=== PATIENT | female | born 1980 | race Caucasian/White ===

== ENCOUNTER 2017-08-08 09:19 | Emergency (ER) | payer OTHER ==
[2017-08-08 09:35] VITALS: BP 119/78
--- NOTE | 2017-08-08 10:19 | EDM.PDOC ---
ED HPI GENERAL MEDICAL PROBLEM - General Chief Complaint: Respiratory Problem Stated Complaint: POSS INFLUENZA/FEVER/CHILLS Time Seen by Provider: 08/08/17 09:51 Source of Information: Reports: Patient, RN Notes Reviewed - History of Present Illness INITIAL COMMENTS - FREE TEXT/NARRATIVE: 37-year-old female presented to the [place] clinic this morning with left earache, cough, congestion, fever chills during the night. Due to inability to do some of the testing they had in mind they have referred her here to the ED for further evaluation. Her cough is been nonproductive. She does deny sore throat. She states her temp was up to 101 during the night with frequent chills. Generalized body aches that continued this morning. She has been taking Tylenol and ibuprofen so actually afebrile on arrival to ED. No chest pain or shortness of breath. No history of pleuritic chest pain. Generalized Pain Score (Numeric/FACES): 4 - Related Data Allergies Allergy/AdvReac Type Severity Reaction Status Date / Time No Known Allergies Allergy Verified 04/27/14 00:32 Home Meds: Home Meds Cholecalciferol (Vitamin D3) [Vitamin D3] 1,000 units PO DAILY 08/08/17 [History ] Gabapentin [Neurontin] 400 mg PO TID 08/08/17 [History] Multivitamin [Daily Cecil] 1 tab PO DAILY 08/08/17 [History] Nefazodone [Serzone] 200 mg PO BID 08/08/17 [History] Ondansetron [Zofran ODT] 4 mg PO Q6H PRN 08/08/17 [History] Pantoprazole Sodium 40 mg PO DAILY 08/08/17 [History] valACYclovir HCl [Valacyclovir] 1,000 mg PO ASDIRECTED 08/08/17 [History] Social & Family History - Tobacco Use Smoking Status *Q: Never Smoker - Alcohol Use Days Per Week of Alcohol Use: 0 - Recreational Drug Use Recreational Drug Use: No ED ROS GENERAL - Review of Systems Review Of Systems: See Below Constitutional: Reports: Fever, Chills, Malaise, Fatigue HEENT: Reports: Ear Pain (Left ear), Sinus Problem (Chronic nasal and sinus congestion). Denies: Throat Pain Respiratory: Reports: Cough. Denies: Shortness of Breath, Wheezing, Pleuritic Chest Pain Cardiovascular: Denies: Chest Pain GI/Abdominal: Denies: Abdominal Pain, Nausea, Vomiting Musculoskeletal: Reports: Other Skin: Denies: Rash (Generalized myalgias) Neurological: Denies: Headache ED EXAM, GENERAL - Physical Exam Exam: See Below General Appearance: Alert, No Apparent Distress Eye Exam: Bilateral Eye: PERRL Ears: Other (There is some fluid behind both TMs, right greater than left, neither TM inflamed at this time) Nose: Other Throat/Mouth: Normal Inspection (She does have some nasal and sinus congestion, sinuses nontender), Normal Oropharynx Head: Atraumatic. No: Facial Swelling, Facial Tenderness Neck: Supple, Full Range of Motion. No: Lymphadenopathy (L), Lymphadenopathy (R ) Respiratory/Chest: No Respiratory Distress, Lungs Clear, Normal Breath Sounds Cardiovascular: Regular Rate, Rhythm Extremities: Normal Inspection, Normal Range of Motion Neurological: Alert, Oriented, No Motor/Sensory Deficits Skin Exam: Warm, Dry, Normal Color, No Rash Course - Vital Signs Last Recorded V/S: Last Vital Signs Temp 97.7 F 08/08/17 09:31 Pulse 99 08/08/17 09:31 Resp 16 08/08/17 09:31 BP 119/78 08/08/17 09:31 Pulse Ox 98 08/08/17 09:31 - Re-Assessments/Exams Free Text/Narrative Re-Assessment/Exam: 08/08/17 10:47 Patient is referred here from the [place] clinic as noted. Concerns at the [place] clinic of possible pneumonia or something more serious such as a PE. I do not hear any sign of pneumonia at this time, her symptoms are compatible with acute viral syndrome. Not clinic chest x-ray her at this time and patient is comfortable with that. She does not have that much of a cough and what cough she does have is not productive. She also does not have acute symptoms or findings suggestive for PE warranting d-dimer or CT pulmonary angiogram at this time. Have discussed this with patient and we will proceed with symptomatic treatment for viral upper respiratory infection at this time. Patient understands and is comfortable with that plan. Departure - Departure Time of Disposition: 10:44 Disposition: Home, Self-Care 01 Condition: Fair Clinical Impression: Viral upper respiratory infection - Discharge Information Referrals: Eli Waddell DO [Primary Care Provider] - Forms: ED Department Discharge Additional Instructions: Vaporizer or steam as needed, rest, drink plenty of water to maintain hydration , needs alternate Tylenol and ibuprofen as needed for discomfort or high fever, as discussed the more acute symptoms of fever and muscle aching should gradually go away after a day or 2, Follow up clinic if not much better within 2 -3 days as expected, return to ED as needed.
== END 2017-08-08 11:01 | disposition home or self-care (01) ==
LOC: JD.ED 09:19
DX: J06.9 Acute upper respiratory infection, unspecified (principal); Z79.899 Other long term (current) drug therapy
CPT/HCPCS: 87804; 99283

== ENCOUNTER 2018-06-26 20:31 | Emergency (ER) | payer BC, OTHER ==
[2018-06-26 20:57] VITALS: BP 154/88
[2018-06-26] MEDS ORDERED: Ondansetron 4 MG/2 ML SDV IVPUSH ONE (21:41)
[2018-06-26] MEDS ORDERED: Sodium Chloride 0.9% 10 ML Syringe FLUSH PRN (21:41)
[2018-06-26] MEDS ORDERED: Famotidine 20 MG/2 ML SDV IVPUSH ONE (21:41)
[2018-06-26] MEDS ORDERED: HYDROmorphone 1 MG/ML Syringe IVPUSH ONE ×2 (21:41→22:35)
[2018-06-26] MEDS ORDERED: Sodium Chloride 0.9% 1,000 ML IV SCH (21:45)
[2018-06-26] MEDS ORDERED: LORazepam 2 MG/ML SDV IVPUSH ONE (22:35)
[2018-06-26] MEDS ORDERED: Ketorolac 30 MG/ML SDV IVPUSH SCH (22:45)
[2018-06-27] MEDS ORDERED: Magnesium Hydroxide 400 MG/5 ML Susp 30 ML Cup PO ONE (00:12)
[2018-06-27] MEDS ORDERED: Dicyclomine 10 MG Cap PO ONE (00:12)
--- NOTE | 2018-06-27 00:22 | EDM.PDOC ---
ED HPI GENERAL MEDICAL PROBLEM - General Chief Complaint: Abdominal Pain Stated Complaint: ABDOMINAL & BACK PAIN Time Seen by Provider: 06/26/18 21:24 Source of Information: Reports: Patient, RN Notes Reviewed - History of Present Illness INITIAL COMMENTS - FREE TEXT/NARRATIVE: 38-year-old female comes in with quite severe abdominal pain. Are did yesterday and has been more severe, more bothersome today. She does have history of prior cholecystectomy. She also has had prior gastric bypass surgery about a year and a half ago. She did have a loose BMs earlier today. She is not having diarrhea. She's not been actively vomiting. When she does try eat the nausea, pain and cramping does get worse. No chest discomfort fever or chills. No difficulty breathing. Lower Abdomen Pain Score (Numeric/FACES): 8 - Related Data Allergies Allergy/AdvReac Type Severity Reaction Status Date / Time No Known Allergies Allergy Verified 06/26/18 20:50 Home Meds: Home Meds Calcium Carbonate/Vitamin D3 [Calcium 500 + Vit D 400] 1 each PO DAILY 06/26/18 [History] Gabapentin. 1 tab PO TID 06/26/18 [History] Lactobacillus Acidophilus [Probiotic] 1 each PO DAILY 06/26/18 [History] Multivitamin [Daily Multiple Vitamin] 1 each PO DAILY 06/26/18 [History] Nafazedone. 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 Denies: Diarrhea, Hematochezia, Melena, Vomiting : Reports: No Symptoms Musculoskeletal: Reports: Back Pain Skin: Reports: No Symptoms Neurological: Reports: No Symptoms ED EXAM, GI/ABD - Physical Exam Exam: See Below General Appearance: Alert, Moderate Distress Eyes: Bilateral: Normal Appearance Throat/Mouth: Normal Inspection, Normal Oropharynx Head: Atraumatic. No: Facial Swelling Neck: Supple, Full Range of Motion Respiratory/Chest: No Respiratory Distress, Lungs Clear, Normal Breath Sounds Cardiovascular: Regular Rate, Rhythm GI/Abdominal Exam: Tender (Mild to moderate diffuse tenderness upper abdomen, minimal tenderness bilateral lower abdomen, no guarding, no definite rebound) Back Exam: No: CVA Tenderness (L), CVA Tenderness (R) Extremities: Normal Inspection, Normal Range of Motion. No: Pedal Edema Neurological: Alert, Oriented, No Motor/Sensory Deficits Skin Exam: Warm, Dry, Normal Color Course - Vital Signs Last Recorded V/S: Last Vital Signs Temp 99.2 F 06/26/18 20:54 Pulse 75 06/26/18 20:54 Resp 16 06/26/18 20:54 BP 154/88 H 06/26/18 20:54 Pulse Ox 100 06/26/18 20:54 - Orders/Labs/Meds Orders: Active Orders 24 hr Category Date Time Status Peripheral IV Care [RC] . DIRECTED Care 06/26/18 21:43 Active Abdomen 2V AP Flat Upright [CR] Stat Exams 06/26/18 23:46 Taken Ketorolac [Toradol] Med 06/26/18 22:45 Active 30 mg IVPUSH ONETIME Sodium Chloride 0.9% [Normal Saline] 1,000 ml Med 06/26/18 21:45 Active IV ONETIME Sodium Chloride 0.9% [Saline Flush] Med 06/26/18 21:41 Active 10 ml FLUSH ASDIRECTED PRN Peripheral IV Insertion Adult [OM.PC] Stat Oth 06/26/18 21:41 Ordered Medication Orders Sodium Chloride (Normal Saline) 1,000 mls @ 999 mls/hr IV ONETIME MARYURI Last Admin: 06/26/18 21:56 Dose: 999 mls/hr Ketorolac Tromethamine (Toradol) 30 mg IVPUSH ONETIME MARYURI Last Admin: 06/26/18 22:46 Dose: 30 mg Sodium Chloride (Saline Flush) 10 ml FLUSH ASDIRECTED PRN PRN Reason: Keep Vein Open Last Admin: 06/26/18 21:56 Dose: 10 ml Labs: Laboratory Tests 06/26/18 06/26/18 06/26/18 Range/Units 22:00 22:00 22:00 WBC 5.75 (3.98-10.04) K/mm3 RBC 4.48 (3.98-5.22) M/mm3 Hgb 12.9 (11.2-15.7) gm/L Hct 38.7 (34.1-44.9) % MCV 86.4 (79.4-94.8) fl MCH 28.8 (25.6-32.2) pg MCHC 33.3 (32.2-35.5) g/dl RDW Std Deviation 39.8 (36.4-46.3) fL Plt Count 182 (182-369) K/mm3 MPV 9.9 (9.4-12.3) fl Neutrophils % (Manual) 48 (40-60) % Band Neutrophils % 1 (0-10) % Lymphocytes % (Manual) 44 H (20-40) % Atypical Lymphs % 0 % Monocytes % (Manual) 4 (2-10) % Eosinophils % (Manual) 2 (0.7-5.8) % Basophils % (Manual) 1 (0.1-1.2) Platelet Estimate Adequate Plt Morphology Comment Normal RBC Morph Comment Normal Sodium 145 (136-145) mEq/L Potassium 3.3 L (3.5-5.1) mEq/L Chloride 108 H (98-107) mEq/L Carbon Dioxide 29 (21-32) mEq/L Anion Gap 11.3 (5-15) BUN 12 (7-18) mg/dL Creatinine 0.6 (0.55-1.02) mg/dL Est Cr Clr Drug Dosing 117.84 mL/min Estimated GFR (MDRD) > 60 (>60) mL/min BUN/Creatinine Ratio 20.0 H (14-18) Glucose 80 (74-106) mg/dL Calcium 9.1 (8.5-10.1) mg/dL Total Bilirubin 0.3 (0.2-1.0) mg/dL GGT 2 L (5-55) U/L AST 13 L (15-37) U/L ALT 29 (14-59) U/L Alkaline Phosphatase 89 (46-116) U/L C-Reactive Protein < 0.2 (<1.0) mg/dL Total Protein 7.2 (6.4-8.2) g/dl Albumin 3.8 (3.4-5.0) g/dl Globulin 3.4 gm/dL Albumin/Globulin Ratio 1.1 (1-2) Lipase 58 L (73-393) U/L Meds: Medications Generic Name Dose Route Start Last Admin Trade Name Freq PRN Reason Stop Dose Admin Sodium Chloride 1,000 mls @ 999 mls/hr 06/26/18 21:45 06/26/18 21:56 Normal Saline IV 999 mls/hr ONETIME MARYURI Administration Ketorolac Tromethamine 30 mg 06/26/18 22:45 06/26/18 22:46 Toradol IVPUSH 30 mg ONETIME MARYURI Administration Sodium Chloride 10 ml 06/26/18 21:41 06/26/18 21:56 Saline Flush FLUSH 10 ml ASDIRECTED PRN Administration Keep Vein Open Discontinued Medications Generic Name Dose Route Start Last Admin Trade Name Freq PRN Reason Stop Dose Admin Dicyclomine HCl 10 mg 06/27/18 00:12 06/27/18 00:29 Bentyl PO 06/27/18 00:13 10 mg ONETIME ONE Administration Famotidine 20 mg 06/26/18 21:41 06/26/18 21:57 Pepcid IVPUSH 06/26/18 21:42 20 mg ONETIME ONE Administration Hydromorphone HCl 1 mg 06/26/18 21:41 06/26/18 21:58 Dilaudid IVPUSH 06/26/18 21:42 1 mg ONETIME ONE Administration Hydromorphone HCl 1 mg 06/26/18 22:35 Dilaudid IVPUSH 06/26/18 22:36 ONETIME ONE Lorazepam 1 mg 06/26/18 22:35 06/26/18 22:46 Ativan IVPUSH 06/26/18 22:36 1 mg ONETIME ONE Administration Magnesium Hydroxide 30 ml 06/27/18 00:12 06/27/18 00:29 Milk Of Magnesia PO 06/27/18 00:13 30 ml ONETIME ONE Administration Ondansetron HCl 4 mg 06/26/18 21:41 06/26/18 21:56 Zofran IVPUSH 06/26/18 21:42 4 mg ONETIME ONE Administration - Re-Assessments/Exams Free Text/Narrative Re-Assessment/Exam: 06/27/18 00:40 Patient did get some relief from the initial Dilaudid but still having quite severe pain and cramping at times, followed that up with Ativan 1 mg IV Toradol 30 mg IV and with that her pain did almost completely go away. And upright of the abdomen shows a lot of gas in the colon and small bowel, no air-fluid levels visible. Have also given Bentyl 10 mg by mouth and no command. Have advised that she stick with clear liquids until tomorrow evening, continue to take the Bentyl 10 mg 3 times a day, see if that will give her some decent relief. She does have a clinic appointment for 1-1/2 days from now. Start instructions as documented. Departure - Departure Time of Disposition: 00:30 Disposition: Home, Self-Care 01 Preliminary Cause of *Q: Sepsis & Multi System Organ Failure Clinical Impression: Abdominal pain Qualifiers: Abdominal location: generalized Qualified Code(s): R10.84 - Generalized abdominal pain - Discharge Information Prescriptions: Hydrocodone/Acetaminophen [[place] 5-325 Tablet] 1 each PO Q4HR PRN #14 tablet PRN Reason: Pain Dicyclomine [Bentyl] 10 mg PO TID #14 cap Referrals: Yue Orr MD [Primary Care Provider] - Forms: ED Department Discharge Additional Instructions: clear liquids until tomorrow evening, than very careful bland diet as tolerated. Continue probiotic twice daily, bentyl 10 mg 3 times daily for colon and intestinal spasms or cramping. Tylenol for mild to moderate pain or hydrocodone if needed for severe pain or cramping. Follow up clinic as planned. Return to ED as needed if symptoms worsening in any way. - My Orders Last 24 Hours: My Active Orders 06/26/18 21:41 Sodium Chloride 0.9% [Saline Flush] 10 ml FLUSH ASDIRECTED PRN Peripheral IV Insertion Adult [OM.PC] Stat 06/26/18 21:43 Peripheral IV Care [RC] . DIRECTED 06/26/18 21:45 Sodium Chloride 0.9% [Normal Saline] 1,000 ml IV ONETIME 06/26/18 22:45 Ketorolac [Toradol] 30 mg IVPUSH ONETIME 06/26/18 23:46 Abdomen 2V AP Flat Upright [CR] Stat - Assessment/Plan Last 24 Hours: My Active Orders 06/26/18 21:41 Sodium Chloride 0.9% [Saline Flush] 10 ml FLUSH ASDIRECTED PRN Peripheral IV Insertion Adult [OM.PC] Stat 06/26/18 21:43 Peripheral IV Care [RC] . DIRECTED 06/26/18 21:45 Sodium Chloride 0.9% [Normal Saline] 1,000 ml IV ONETIME 06/26/18 22:45 Ketorolac [Toradol] 30 mg IVPUSH ONETIME 06/26/18 23:46 Abdomen 2V AP Flat Upright [CR] Stat
--- NOTE | 2018-06-27 06:32 | CR ---
Abdomen: Supine and upright views of the abdomen were obtained. Increased gas is noted throughout the colon. Bowel gas pattern is otherwise unremarkable. Surgical clips are seen from prior cholecystectomy. Bony structures are unremarkable. Calcifications are seen within the pelvis compatible with phlebolith. Other surgical anastomotic sutures are seen in the area of the left abdomen and upper abdomen. Impression: 1. Previous abdominal surgery. 2. Slight increased gas within the colon which appears to be mild ileus. Diagnostic code #2
== END 2018-06-27 00:36 | disposition home or self-care (01) ==
LOC: JD.ED 20:31
DX: R10.84 Generalized abdominal pain (principal); Z79.899 Other long term (current) drug therapy
CPT/HCPCS: 36415; 74019; 80053; 82977; 83690; 85007; 85027; 86140; 96361; 96374; 96375; 99284; A9270; J1170; J1885; J2060; J2405; J3490; J7040

== ENCOUNTER 2019-08-07 06:57 | Day surgery (SDC) | payer BC, OTHER ==
[~2019-08-07 06:57] MED LIST: Lidocaine 1%/Sod Bicarbonate in NS 8.4% 1 ML Syringe IDERM PRN; Sodium Chloride 0.9% 10 ML Syringe FLUSH PRN
[2019-08-07] MEDS ORDERED: Propofol 200 MG/20 ML SDV ONE (07:14)
[2019-08-07] MEDS ORDERED: fentaNYL 250 MCG/5 ML SDV ONE (07:15)
[2019-08-07] MEDS ORDERED: Midazolam 1 MG/ML 2 ML SDV ONE ×2 (07:15→07:45)
[2019-08-07] MEDS ORDERED: Lidocaine 1% 4 ML ONE (07:16)
[2019-08-07] MEDS: Lactated Ringers 1,000 ML IV SCH ×2 (07:25→11:14)
--- NOTE | 2019-08-07 08:10 | PCM.PREANE ---
Preanesthetic Assessment - Anesthesia/Transfusion/Family Hx Anesthesia History: Prior Anesthesia Without Reaction - Review of Systems General: No Symptoms Pulmonary: No Symptoms Cardiovascular: No Symptoms Gastrointestinal: No Symptoms Neurological: No Symptoms Other: Reports: None - Physical Assessment NPO Status Date: 08/06/19 NPO Status Time: 22:00 Vital Signs: Last Vital Signs Temp 98.0 F 08/07/19 07:05 Pulse 61 08/07/19 07:05 Resp 14 08/07/19 07:05 BP 112/74 08/07/19 07:05 Pulse Ox 97 08/07/19 07:05 Height: 1.7 m Weight: 63.049 kg ASA Class: 1 Mental Status: Alert & Oriented x3 Airway Class: Mallampati = 1 Dentition: Reports: Normal Dentition Thyro-Mental Finger Breadths: 3 Mouth Opening Finger Breadths: 3 ROM/Head Extension: Full Lungs: Clear to Auscultation, Normal Respiratory Effort Cardiovascular: Regular Rate, Regular Rhythm - Allergies Allergies/Adverse Reactions: Allergies Allergy/AdvReac Type Severity Reaction Status Date / Time lactose Allergy Nausea and Verified 08/06/19 12:57 Vomiting hayfever Allergy Sneezing Uncoded 08/06/19 12:57 - Acknowledgements Anesthesia Type Planned: General Anesthesia Pt an Appropriate Candidate for the Planned Anesthesia: Yes Alternatives and Risks of Anesthesia Discussed w Pt/Guardian: Yes Pt/Guardian Understands and Agrees with Anesthesia Plan: Yes PreAnesthesia Questionnaire HEENT History: Reports: Impaired Vision, Other (See Below) Other HEENT History: optic neuritis, wears glasses Cardiovascular History: Reports: High Cholesterol Respiratory History: Reports: None Gastrointestinal History: Reports: GERD Genitourinary History: Reports: Renal Calculus [employer]ER History: Reports: Musculoskeletal History: Reports: Back Pain, Chronic, Other (See Below) Other Musculoskeletal History: joint pain, plantar fasciitis Neurological History: Reports: None Psychiatric History: Reports: Anxiety, Depression Endocrine/Metabolic History: Reports: None Hematologic History: Reports: None Immunologic History: Reports: None Oncologic (Cancer) History: Reports: None Dermatologic History: Reports: None - Past Surgical History Head Surgeries/Procedures: Reports: None HEENT Surgical History: Reports: Oral Surgery Cardiovascular Surgical History: Reports: None Respiratory Surgical History: Reports: None GI Surgical History: Reports: Bariatric Procedure, Cholecystectomy, Colonoscopy , EGD Female Surgical History: Reports: D&C Male Surgical History: Reports: None Endocrine Surgical History: Reports: None Neurological Surgical History: Reports: None Musculoskeletal Surgical History: Reports: None Oncologic Surgical History: Reports: None Dermatological Surgical History: Reports: None - SUBSTANCE USE Smoking Status *Q: Former Smoker Recreational Drug Use History: No - HOME MEDS Home Medications: Home Meds Calcium Carbonate [Calcium] 500 mg PO DAILY 08/06/19 [History] Docusate Sodium [Colace] 100 mg PO BID 08/06/19 [History] Esomeprazole Magnesium [Nexium] 40 mg PO DAILY 08/06/19 [History] Gabapentin [Neurontin] 600 mg PO TID 08/06/19 [History] Lactobacillus Combination No.4 [Probiotic] 1 cap PO DAILY 08/06/19 [History] Melatonin 10 mg PO BEDTIME PRN 08/06/19 [History] Multivitamin 1 tab PO DAILY 08/06/19 [History] Nefazodone [Serzone] 300 mg PO BID 08/06/19 [History] Ondansetron HCl [Zofran] 4 mg PO Q6H PRN 08/06/19 [History] Temazepam 30 mg PO BEDTIME PRN 08/06/19 [History] traMADol [Ultram] 50 mg PO DAILY PRN 08/06/19 [History] traZODone 75 mg PO BEDTIME PRN 08/06/19 [History] valACYclovir HCl [valACYclovir] 2,000 mg PO BID PRN 08/06/19 [History] - CURRENT (IN HOUSE) MEDS Current Meds: Current Medications Lactated Ringer's (Ringers, Lactated) 1,000 mls @ 125 mls/hr IV ASDIRECTED MARYURI Stop: 08/07/19 23:00 Last Admin: 08/07/19 07:25 Dose: 125 mls/hr Lidocaine/Sodium Bicarbonate (Buffered Lidocaine 1% In Ns 8.4%) 0.25 ml IDERM ONETIME PRN PRN Reason: Prior to IV Start Stop: 08/07/19 18:00 Last Admin: 08/07/19 07:24 Dose: 0.25 ml Sodium Chloride (Saline Flush) 10 ml FLUSH ASDIRECTED PRN PRN Reason: Keep Vein Open Stop: 08/07/19 18:00 Discontinued Medications Bupivacaine HCl/Epinephrine Bitart (Marcaine 0.5%/Epinephrine 1:200,000) Confirm Administered Dose 50 ml .ROUTE .STK-MED ONE Stop: 08/07/19 07:14 Fentanyl (Sublimaze) Confirm Administered Dose 250 mcg .ROUTE .STK-MED ONE Stop: 08/07/19 07:16 Lidocaine HCl (Xylocaine-Mpf 1%) Confirm Administered Dose 4 mls @ as directed .ROUTE .STK-MED ONE Stop: 08/07/19 07:17 Lidocaine/Epinephrine (Xylocaine 1% With Epinephrine 1:100,000) Confirm Administered Dose 40 ml .ROUTE .STK-MED ONE Stop: 08/07/19 07:14 Midazolam HCl (Versed 1 Mg/Ml) Confirm Administered Dose 2 mg .ROUTE .STK-MED ONE Stop: 08/07/19 07:16 Midazolam HCl (Versed 1 Mg/Ml) Confirm Administered Dose 2 mg .ROUTE .STK-MED ONE Stop: 08/07/19 07:46 Propofol (Diprivan 20 Ml) Confirm Administered Dose 200 mg .ROUTE .STK-MED ONE Stop: 08/07/19 07:15 Vecuronium [place] (Vecuronium) Confirm Administered Dose 10 mg .ROUTE .STK-MED ONE Stop: 08/07/19 07:16
[2019-08-07] MEDS ORDERED: ceFAZolin 1 GM Vial ONE (08:36)
[2019-08-07] MEDS: Lidocaine 1% with EPINEPHrine 1:100,000 20 ML MDV ONE ×2 (08:40→09:03)
[2019-08-07] MEDS: Bupivacaine 0.5%/EPINEPHrine 1:200,000 50 ML MDV ONE ×2 (08:40→09:03)
[2019-08-07] MEDS ORDERED: Morphine 10 MG/ML SDV ONE (08:42)
[2019-08-07] MEDS ORDERED: Lactated Ringers 1,000 ML ONE (08:53)
[2019-08-07] MEDS ORDERED: fentaNYL 100 MCG/2 ML SDV IVPUSH PRN (08:59)
[2019-08-07] MEDS ORDERED: Midazolam 1 MG/ML 2 ML SDV IVPUSH PRN (09:02)
[2019-08-07] MEDS ORDERED: Ondansetron 4 MG/2 ML SDV ONE (09:23)
[2019-08-07] MEDS ORDERED: Dexamethasone 4 MG/ML 5 ML MDV ONE (09:23)
[2019-08-07] MEDS ORDERED: Ketorolac 30 MG/ML SDV ONE (09:31)
--- NOTE | 2019-08-07 09:40 | PCM.PRNOTE ---
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 Normal Ray-en-Y anatomy with healthy appearing bowel. Detailed Report: After induction of general endotracheal anesthesia and standard prep and draping of the abdomen, the [place] technique was employed in order to secure a 12 mm laparoscopic port at the umbilicus. The abdomen was insufflated and contents inspected. Additional 5 mm ports were placed at the suprapubic region, left lower quadrant and right lateral mid abdomen. The small bowel was run in its entirety from the ileocecal junction to the jejunojejunostomy. The biliopancreatic limb was traced back to the ligament of Treitz, and the Ray limb traced superiorly to the gastric pouch in antecolic position. There was a wide mesenteric window between the Ray limb and the remnant stomach and transverse colon. A 2-0 barbed PDS suture was then used to close the window from the level of the transverse colon down to the crotch or base of the Ray limb mesentery. Next, the jejunojejunostomy was carefully inspected. The mesentery of the biliopancreatic limb appeared fused with the mesentery of the rest of the bowel at the anastomosis, with no identifiable window to close. This concluded my involvement in the operation. Maurizio Porter MD
--- NOTE | 2019-08-07 09:51 | PCM.OPNOTE ---
- General Post-Op/Procedure Note Date of Surgery/Procedure: 08/07/19 Operative Procedure(s): 1. Diagnostic laparoscopy. 2. Repair of internal hernia Findings: Internal hernia at the antecolic border of the fernando limb mesentery and transverse colon Pre Op Diagnosis: abdominal pain, possible internal hernia Post-Op Diagnosis: internal hernia Anesthesia Technique: General ET Tube, Local Primary Surgeon: Micaela Meade Ortho Nurse: Maurizio Porter Reason Ortho Nurse Was Necessary: surgical skilled assist was needed for post-surgical anatomy Pathology: none Fluid Replacement, Intraop: 1,500 Output, Urine Amount: 0 EBL in mLs: 5 Complications: none apparent Condition: Good
--- NOTE | 2019-08-07 09:54 | PCM.PRNOTE ---
- Free Text/Narrative Note: Operative Report Date of surgery: August 07, 2019 Preoperative diagnosis: Abdominal pain, possible internal hernia Postoperative diagnosis: Internal hernia Procedure: 1. Diagnostic laparoscopy 2. Repair of internal hernia Surgeon: Dr. Micaela Meade Rocket Test Fire Worker: Dr. Maurizio Porter Rocket Test Fire Worker justification: surgical skilled assist was needed for specialized post -surgical anatomy Anesthesia: General ET, local Client Leader: Salvador Garcia CRNA Estimated blood loss: 5 mL IV fluids: 1500 mL Urine output: 0 mL Drains and lines: none Findings: Internal hernia at the antecolic border of the fernando limb mesentery and transverse colon Pathology: none Indication for the procedure: The patient is a 39 y/o female with a long history of intermittent abdominal pain with obstructive symptoms. She has undergone workup with EGD and colonoscopy. She recently had a CT scan of the abdomen and pelvis which indicated findings of an internal hernia. She was consented for a diagnostic laparoscopy with possible lysis of adhesions, and possible repair of internal hernia. Discussed risks of infection, bleeding, possible bowel injury, and possible creation of additional adhesions. Her written consent was obtained. Description of the procedure: The patient presented to the outpatient holding area on the day of her procedure. Her history and physical verified. Her consent was present and on the chart. She was taken back to the operating room and placed in supine position on the operating table. She had administration of 2 g Ancef per SCIP guidelines. She had successful induction of general anesthesia and was intubated without difficulty. She was then prepped and draped in standard surgical fashion. A surgical timeout was performed. We began by making an infraumbilical incision and this was deepened down to level the fascia which was grasped and incised sharply. We then placed a stay suture of 0 Vicryl in a pursestring fashion at the fascial opening. A 12 mm on cannula was then placed into the abdomen. The abdomen was insufflated to 15 mmHg without incident. We then surveyed the abdomen. A TAP block was performed using 40 mL of mixed one-to-one 1% lidocaine with epinephrine and 0.5 % bupivacaine with epinephrine. Two 5 mm ports were then placed in the suprapubic midline and left lower quadrant under direct visualization. The was then positioned in Trendelenburg with the right side elevated to facilitate exposure of the cecum and ileum. There was a small amount adhesion between the cecum and the abdominal wall. This was bluntly removed. The terminal ileum was then grasped and the ileum retraced superiorly towards the patient's head. During the running of the bowel, we identified a loop of bowel that was herniated up into the left upper quadrant. We were able to trace the bowel to the level of the jejunojejunal anastomosis. The stenosis was intact and the mucosa appeared healthy. We were then able to trace the Fernando limb to the where it was overlying the stomach. The biliopancreatic limb was then traced down to the level of the ligament of Treitz. Then turned our attention back to where the Fernando limb was overlying the transverse colon. This appeared to be the area where the bowel had previously herniated. Was an opening under the mesentery between the transverse colon and mesentery of the jejunum. A V-lock suture was then inserted into the abdomen and the transverse colon was sutured to the jejunal mesentery using seromuscular bites. The hernia fact was then adequately closed. There was no bleeding or enteric contents noted after the suturing was completed. We then investigated the area of ecchymosis between the jejunum and the biliopancreatic limb. At this location the mesentery was tacked together and there was no evidence of herniation. Omentum was again surveyed and there was no evidence of any active bleeding or injury. The abdomen was desufflated and the ports were removed. The fascial incision at the umbilicus was then closed using the 0 Vicryl stay suture. The remaining ports were removed and all the skin incisions were closed with a subcuticular 4- 0 Monocryl suture. Dermabond was used to cover the incision. The patient was awakened from anesthesia and extubated without difficulty. She was transported to the PACU in stable condition. Micaela Meade MD General Surgery
--- NOTE | 2019-08-07 10:07 | PCM.POSTAN ---
POST ANESTHESIA ASSESSMENT - MENTAL STATUS Mental Status: Somnolent - VITAL SIGNS Vital Signs: Last Vital Signs Temp 97.1 F 08/07/19 09:53 Pulse 78 08/07/19 09:53 Resp 9 L 08/07/19 09:53 BP 93/52 L 08/07/19 09:53 Pulse Ox 100 08/07/19 09:53 - RESPIRATORY Respiratory Status: Respiratory Rate WNL, Airway Patent, O2 Saturation Stable, Supplemental Oxygen - CARDIOVASCULAR CV Status: Pulse Rate WNL, Blood Pressure Stable - GASTROINTESTINAL GI Status: No Symptoms - PAIN Pain Score: 0 - POST OP HYDRATION Hydration Status: Adequate & Stable
[2019-08-07] MEDS ORDERED: Acetaminophen/HYDROcodone 325-5 MG Tab PO PRN (10:31)
--- NOTE | 2019-08-07 11:24 | PCM48HPAN ---
Post Anesthesia Note - EVALUATION WITHIN 48HRS OF ANESTHETIC Vital Signs in Normal Range: Yes Patient Participated in Evaluation: Yes Respiratory Function Stable: Yes Airway Patent: Yes Cardiovascular Function Stable: Yes Hydration Status Stable: Yes Pain Control Satisfactory: Yes Nausea and Vomiting Control Satisfactory: Yes Mental Status Recovered: Yes Vital Signs: Last Vital Signs Temp 97.1 F 08/07/19 11:00 Pulse 57 L 08/07/19 11:00 Resp 12 08/07/19 11:00 BP 90/61 08/07/19 11:00 Pulse Ox 98 08/07/19 11:00 - COMMENTS/OBSERVATIONS Free Text/Narrative:: Patient is still sleepy, pain tolerable, comfortable with being discharged home today.
[2019-08-07 14:32] VITALS: BP 116/73; PULSE 64
== END 2019-08-07 14:24 | disposition home or self-care (01) ==
LOC: JD.SDS 06:57
PROVIDERS: ATTEND Surgery
DX: K46.9 Unspecified abdominal hernia without obstruction or gangrene (principal); E78.5 Hyperlipidemia, unspecified; E78.00 Pure hypercholesterolemia, unspecified; Z90.49 Acquired absence of other specified parts of digestive tract; Z98.84 Bariatric surgery status
CPT/HCPCS: 00840; A9270-GY; J0690; J1100; J1885; J2001; J2250; J2270; J2405; J2704; J2710; J3010; J3490; J7120